=== PATIENT | male | born 1990 | race Caucasian/White ===

== ENCOUNTER 2016-06-10 22:28 | Emergency (ER) | payer OTHER ==
[~2016-06-10] VITALS: Ht 185.4 cm; Wt 113.4 kg
[~2016-06-10 22:28] MED LIST: IBUPROFEN800 M1 PO; PERCOCET 5-3251 EACH PO
[2016-06-10 22:37] VITALS: BP 133/61
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
== END 2016-06-10 23:20 ==
LOC: ERH 22:28
DX: S01.01XA Laceration without foreign body of scalp, initial encounter (principal); W22.8XXA Striking against or struck by other objects, initial encounter; W25.XXXA Contact with sharp glass, initial encounter; Y93.9 Activity, unspecified; Y92.9 Unspecified place or not applicable

== ENCOUNTER 2017-07-18 21:26 | Emergency (ER) | payer SELFPAY ==
[~2017-07-18] VITALS: Ht 185.4 cm; Wt 113.4 kg
[2017-07-18 21:36] VITALS: BP 166/113
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
== END 2017-07-18 22:38 ==
LOC: ERH 21:26
DX: S61.511A Laceration without foreign body of right wrist, initial encounter (principal); F10.129 Alcohol abuse with intoxication, unspecified; W25.XXXA Contact with sharp glass, initial encounter; Y92.9 Unspecified place or not applicable; Y92.89 Other specified places as the place of occurrence of the external cause
CPT/HCPCS: J2001

== ENCOUNTER 2017-09-24 10:32 | Inpatient (IN) | payer OTHER ==
[~2017-09-24] VITALS: Ht 185.4 cm; Wt 103.1 kg
[2017-09-24 11:00] LABS: ABSOLUTE BASOPHIL COUNT 0 /CUMM (0.0-0.2); ABSOLUTE EOSINOPHIL COUNT 0.2 /CUMM (0.0-0.7); ABSOLUTE GRANULOCYTE CT 2.2 /CUMM (1.4-6.5); ABSOLUTE LYMPH COUNT 1.7 /CUMM (1.2-3.4); ABSOLUTE MONOCYTE COUNT 0.5 /CUMM (0.10-0.60); BASOPHIL % 0.9 % (0.0-2.0); EOSINOPHIL % 3.5 % (0-5); GRANULOCYTE % 47.7 % (42.2-75.2); HEMATOCRIT 40.9 % (42-52); MEAN CORPUSCULAR HGB 32.5 PG (27.0-31.0); MEAN CORPUSCULAR HGB CONC 35.1 G/DL (33.0-37.0); MEAN CORPUSCULAR VOLUME 92.7 FL (80.0-94.0); MEAN PLATELET VOLUME 7.7 FL (7.4-10.4); PLATELET COUNT 146 /CUMM (130-400); RBC DISTRIBUTION WIDTH 12.9 % (11.5-14.5); RED BLOOD CELL CT 4.41 /CUMM (4.70-6.10); WHITE BLOOD CELL COUNT 4.6 /CUMM (4.8-10.8)
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
--- NOTE | 2017-09-24 11:58 | CT SCAN REPORT ---
EXAMINATION: CT HEAD WITHOUT CONTRAST CLINICAL INFORMATION: Tonic-clonic seizure followed with confusion. New-onset seizure. COMPARISON: None TECHNIQUE: Contiguous axial imaging was performed from the skull base to vertex without intravenous administration of contrast. DLP: 623.43 mGy-cm FINDINGS: There is no evidence of acute intracranial hemorrhage or territorial infarction. No abnormal mass effect or midline shift is seen. Raphael to white matter differentiation is well preserved. No extra-axial fluid collections are identified. The ventricles are normal in size. There is no abnormal attenuation within the brain parenchyma. The osseous structures and soft tissues are normal. There is partial opacification of the right ethmoid air cells and the right nasal passage. The mastoid air cells and visualized portions of the paranasal sinuses are otherwise well aerated. IMPRESSION: 1. No acute intracranial pathology. 2. Partial opacification of right ethmoid air cells and right nasal passage.
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
--- NOTE | 2017-09-24 14:47 | Admission Certification ---
Admission Certification Certification Statement - As attending physician, I certify that at the time of - admission, based on clinical presentation, severity of - symptoms, need for further diagnostic testing and - therapeutic interventions, and risk of adverse outcomes - without in-hospital treatment, in my clinical assessment, - this patient requires an acute hospital stay for a minimum - of two nights or longer. I have also considered psychsocial - factors such as support system, advanced age, financial - issues, cognitive issues, and failed out-patient treatments, - past re-admission history, safety of patient, and lack of - compliance as applicable. Specific rationale supporting this admission is: New seizures in patient with alcohol dependence
[2017-09-24 18:10] VITALS: BP 158/86
[2017-09-24 18:24] VITALS: BP 158/86
--- NOTE | 2017-09-24 18:59 | MRI REPORT ---
EXAMINATION: MR BRAIN WITHOUT CONTRAST CLINICAL INFORMATION: Seizure. Rule out any space occupying lesion/stroke. COMPARISON: Head CT 09/24/2017. TECHNIQUE: Multiplanar, multisequence imaging of the brain was performed without intravenous contrast. \H\ \N\FINDINGS: There is no acute infarction, mass, hemorrhage, or extra-axial collection. The ventricles, sulci, and basilar cisterns are normal in size and configuration. The hippocampi appear normal in size and signal and are symmetric. The flow voids of the major intracranial arteries appear intact. A small amount of fluid is present in the right mastoid. There is mild ethmoid and maxillary sinus mucosal thickening. IMPRESSION: No acute infarct, mass lesion, intracranial hemorrhage, or evidence of hydrocephalus.
--- NOTE | 2017-09-24 21:13 | ELECTROENCEPHALOGRAM REPORT ---
Electroencephalogram Report Electroencephalogram Results Date of service: 09/24/17 Attending MD: Marissa CRABTREE,Dede Calles Lead Worker Of Housekeeping And Laundry: Isaac EEG Number: [id number] Test Utilizes: 10-20 system, 21 lead 18 channel digital recording Pertinent Hx/Physical/Neuro Findings/Clin Diagnosis: New onset back to back seizure in the setting of alcohol abuse. Inpatient Medications: Current Medications Sig/Luis M Start time Last Medication Dose Route Stop Time Status Admin Acetaminophen 650 MG Q6PRN PRN 09/24 1500 AC PO Acetaminophen 1,000 MG ONCE ONE 09/24 1400 DC 09/24 IV 09/24 1401 1412 Acetaminophen 0 .STK-MED ONE 09/24 1349 DC IV Enoxaparin Sodium 0 .STK-MED ONE 09/24 1531 DC SC Enoxaparin Sodium 40 MG DAILY 09/24 1458 AC 09/24 SC 1531 Folic Acid 1 MG DAILY 09/24 1601 AC 09/24 PO 1847 Ketorolac 0 .STK-MED ONE 09/24 1131 DC Tromethamine .ROUTE Ketorolac 30 MG ONCE ONE 09/24 1130 DC 09/24 Tromethamine IV 09/24 1131 1131 Levetiracetam 1,000 MG BID 09/24 2100 AC 09/24 PO 2006 Levetiracetam 1,000 MG ONCE ONE 09/24 1230 DC 09/24 N/A 1 UNIT IV 09/24 1244 1231 Lorazepam 0 Q1P PRN 09/24 1615 AC 09/24 IV 2005 Lorazepam 0 .STK-MED ONE 09/24 1418 DC .ROUTE Lorazepam 1 MG ONCE ONE 09/24 1415 DC 09/24 IV 09/24 1416 1422 Lorazepam 2 MG ONE ONE 09/24 1230 DC 08 IV 09/24 1231 1223 Lorazepam 0 .STK-MED ONE 09/24 1218 DC .ROUTE Morphine Sulfate 2 MG ONCE ONE 09/24 2000 DC 09/24 IV 09/24 Morphine Sulfate 0 .STK-MED ONE 09/24 1418 DC .ROUTE Morphine Sulfate 4 MG ONCE ONE 09/24 1415 DC 09/24 IV 09/24 1416 1422 Multivitamins 1 TAB DAILY 09/24 1621 AC 09/24 PO 1847 Nicotine 0 .STK-MED ONE 09/24 1419 DC TOP Nicotine 21 MG ONCE ONE 09/24 1415 DC / TOP 09/24 1416 1422 Ondansetron HCl 0 .STK-MED ONE 09/24 1059 DC .ROUTE Ondansetron HCl 4 MG ONCE ONE 09/24 1045 DC 09/24 IV 09/24 1046 1057 Sodium Chloride 1,000 ML BOLUS ONE 09/24 1230 DC / IV 09/24 1329 1231 Sodium Chloride 1,000 ML BOLUS ONE 09/24 1045 DC 09/24 IV 09/24 1144 1057 Thiamine HCl 100 MG DAILY 09/24 1601 AC 09/24 PO 1847 Interpretation: The recording demonstrates a disruption of the normal frequency gradient. The background is predominated by very low 5-15 microvolt fast beta rhythms. No other suggestive paroxysmal sharps or spikes. The posterior dominant rhythm is indiscernible. Impression: Mildly abnormal recording due to low amplitude fast rhythms which are usually a reflection of alcohol use or benzodiazepine usage in this context.
[2017-09-24 22:01] VITALS: BP 154/76
[2017-09-25 06:18] VITALS: BP 164/98
[2017-09-25 06:58] VITALS: BP 160/98
--- NOTE | 2017-09-25 07:19 | PN- Housestaff ---
LeandrorasheedEvgeny 09/25/17 0719: Subjective Follow-up For: Alcohol Withdrawal Seizure Subjective: No events per nursing. No events on tele monitor. Pt complains that he didn't sleep well last night. He is complaining of pain in his back and down his right leg, neuropathic sounding in nature. He denies any new complaints. Review of Systems Constitutional: Reports: see HPI. Objective Last 24 Hrs of Vital Signs/I&O Vital Signs Date Time Temp Pulse Resp B/P B/P Pulse O2 O2 Flow FiO2 Mean Ox Delivery Rate 09/25 2204 98.8 134 16 144/86 97 09/25 1440 98.4 88 18 150/100 97 Room Air 09/25 0658 984.0 87 20 160/98 97 Room Air 09/25 0618 98.4 87 20 164/98 Intake & Output 09/26 0800 09/26 0000 09/25 1600 Intake Total 120 800 Output Total Balance 120 800 Intake, Oral 120 800 Patient 227 lb Weight Physical Exam General Appearance: Alert, Oriented X3, Mild Distress HEENT: Atraumatic, PERRLA, EOMI Neck: Supple Cardiovascular: Regular Rate, Normal S1, Normal S2 Lungs: Clear to Auscultation Abdomen: Normal Bowel Sounds, Soft, No Tenderness Neurological: Normal Speech, Upper limbs no pronator drift Extremities: No Tenderness/Swelling Current Medications: Current Medications Sig/Luis M Start time Last Medication Dose Route Stop Time Status Admin Acetaminophen 650 MG Q6PRN PRN 09/24 1500 AC PO Enoxaparin Sodium 40 MG DAILY 09/24 1458 AC 09/25 SC 0826 Folic Acid 1 MG DAILY 09/24 1601 AC 09/25 PO 0826 Gabapentin 300 MG Q8 09/25 1400 AC 09/25 PO 2112 Levetiracetam 1,000 MG BID 09/24 2100 DC 09/25 PO 0826 Lorazepam 2 MG Q6 09/25 1200 AC 09/25 PO 2354 Lorazepam 0 Q1P PRN 09/24 1615 AC 09/25 IV 1010 Morphine Sulfate 2 MG Q8P PRN 09/25 1015 AC IV Multivitamins 1 TAB DAILY 09/24 1621 AC 09/25 PO 0826 Nicotine 21 MG DAILY 09/25 1500 AC 09/25 TOP 1702 Oxycodone/ 0 .STK-MED ONE 09/25 1003 DC Acetaminophen PO Oxycodone/ 1 TAB Q6P PRN 09/25 0945 AC 09/25 Acetaminophen PO 2220 Thiamine HCl 100 MG DAILY 09/24 1601 AC 09/25 PO 0826 Last 24 Hrs of Lab/Geovany Results Last 24 Hrs of Labs/Mics: Laboratory Tests 09/25/17 0645: CBC w Diff NO MAN DIFF REQ, RBC 4.40 L, MCV 92.4, MCH 32.0 H, MCHC 34.6, RDW 13.0, MPV 8.1, Gran % 74.3, Lymphocytes % 16.9 L, Monocytes % 4.5, Eosinophils % 3.2, Basophils % 1.1, Absolute Granulocytes 3.4, Absolute Lymphocytes 0.8 L, Absolute Monocytes 0.2, Absolute Eosinophils 0.1, Absolute Basophils 0.1 Assessment/Plan Assessment: 26 year old with long hx of alcohol abuse presenting with likely alcohol withdrawal seizures. His urine was positive for cocaine and opiates. His progression is concerning for worsening withdrawal symptoms, we will use scheduled Ativan for now. Problem list: #Alcohol Withdrawal Seizure #Polysubstance Abuse - Gabapentin 300mg TID for R Leg neuropathic radicular pain - Schedule Ativan 2mg Q6 - Pain management with Tylenol, - Thiamine and Folic acid - Social consult Problem List: 1. Alcohol withdrawal seizure Pain Ratin Pain Location: Right left Pain Goal: Remain pain free Pain Plan: Per [facility] Labs & Rationales: AUNG Ann MD,Dede 09/25/17 1046: Attending MD Review Statement Attending Statement Attending MD Statement: examined this patient, discuss w/resident/PA/APPLICATIONS PACKAGER, agreed w/resident/PA/APPLICATIONS PACKAGER, reviewed EMR data (avail), discussed with nursing, discussed with case mgmt, reviewed images Attending Assessment/Plan: Patient complaining of a lot of pain and says that it originates in his back and goes down his legs. I spoke to the neurologist who is recommending gabapentin both for his sciatica and his seizure. We think this is an alcohol withdrawal/ related seizure. He is fairly tremulous and withdrawing so we will start him on Ativan [id number]. I spoke to him about his U tox being positive for cocaine and opiates and we have a social work consult pending.
[2017-09-25 07:39] LABS: ABSOLUTE BASOPHIL COUNT 0.1 /CUMM (0.0-0.2); ABSOLUTE EOSINOPHIL COUNT 0.1 /CUMM (0.0-0.7); ABSOLUTE GRANULOCYTE CT 3.4 /CUMM (1.4-6.5); ABSOLUTE LYMPH COUNT 0.8 /CUMM (1.2-3.4); ABSOLUTE MONOCYTE COUNT 0.2 /CUMM (0.10-0.60); BASOPHIL % 1.1 % (0.0-2.0); EOSINOPHIL % 3.2 % (0-5); HEMATOCRIT 40.7 % (42-52); MEAN CORPUSCULAR HGB CONC 34.6 G/DL (33.0-37.0); MEAN CORPUSCULAR VOLUME 92.4 FL (80.0-94.0); MEAN PLATELET VOLUME 8.1 FL (7.4-10.4); PLATELET COUNT 122 /CUMM (130-400); WHITE BLOOD CELL COUNT 4.6 /CUMM (4.8-10.8)
[2017-09-25 07:59] LABS: GRANULOCYTE % 74.3 % (42.2-75.2)
--- NOTE | 2017-09-25 08:04 | PN- Student ---
Subjective Subjective: 26-year-old male with PMH of right-sided sciatica, polysubstance abuse, and metatarsal and metacarpal fractures presented to ED with new onset of seizures x2 episodes 1 at home and 1 in ED 1 day ago, both of which lasted for 1-2 mins, which was witnessed by his girlfriend and was controlled with Ativant 2mg IV 1 dose and Keppra 1000mg IV 1 dose in ED. Hospital day 1: Overnight, bus driver/monitor reported NSR [id number] 12am-6am. Upon visiting patient this morning at 7:30am, patient was sleeping and his girlfriend requested not to disturb him as he had difficulty sleeping overnight due to back pain. Will return later to complete bedside evaluation and interview. Patient was interviewed and examined at bedside. His only complaint was his lower back pain in which he could not sleep well overnight. Patient requested high dose pain med in which the attending refused because patient had history of cocaine, heroine and marijuanna abuse. Patient denied SOB, chest pain, palpitation, headache, fever, chills. Current Medications Sig/Luis M Start time Last Medication Dose Route Stop Time Status Admin Acetaminophen 650 MG Q6PRN PRN 09/24 1500 AC PO Acetaminophen 1,000 MG ONCE ONE 09/24 1400 DC 09/24 IV 09/24 1401 1412 Acetaminophen 0 .STK-MED ONE 09/24 1349 DC IV Enoxaparin Sodium 0 .STK-MED ONE 09/24 1531 DC SC Enoxaparin Sodium 40 MG DAILY 09/24 1458 AC 09/25 SC 0826 Folic Acid 1 MG DAILY 09/24 1601 AC 09/25 PO 0826 Gabapentin 300 MG Q8 09/25 1400 AC PO Ketorolac 0 .STK-MED ONE 09/24 1131 DC Tromethamine .ROUTE Ketorolac 30 MG ONCE ONE 09/24 1130 DC 09/24 Tromethamine IV 09/24 1131 1131 Levetiracetam 1,000 MG BID 09/24 2100 DC 09/25 PO 0826 Levetiracetam 1,000 MG ONCE ONE 09/24 1230 DC 09/24 N/A 1 UNIT IV 09/24 1244 1231 Lorazepam 2 MG Q6 09/25 1200 AC PO Lorazepam 0 Q1P PRN 09/24 1615 AC 09/25 IV 1010 Lorazepam 0 .STK-MED ONE 09/24 1418 DC .ROUTE Lorazepam 1 MG ONCE ONE 09/24 1415 DC 09/24 IV 09/24 1416 1422 Lorazepam 2 MG ONE ONE 09/24 1230 DC 09/24 IV 09/24 1231 1223 Lorazepam 0 .STK-MED ONE 09/24 1218 DC .ROUTE Morphine Sulfate 2 MG Q8P PRN 09/25 1015 AC IV Morphine Sulfate 0 .STK-MED ONE 09/25 0154 DC .ROUTE Morphine Sulfate 2 MG ONCE ONE 09/25 0145 DC 09/25 IV 09/25 0146 0155 Morphine Sulfate 2 MG ONCE ONE 09/25 1999 DC 09/24 IV 09/24 Morphine Sulfate 0 .STK-MED ONE 09/24 1418 DC .ROUTE Morphine Sulfate 4 MG ONCE ONE 09/24 1415 DC 09/24 IV 09/24 1416 1422 Multivitamins 1 TAB DAILY 09/24 1621 AC 09/25 PO 0826 Nicotine 0 .STK-MED ONE 09/24 1419 DC TOP Nicotine 21 MG ONCE ONE 09/24 1415 DC 09/24 TOP 09/24 1416 1422 Ondansetron HCl 0 .STK-MED ONE 09/24 1059 DC .ROUTE Ondansetron HCl 4 MG ONCE ONE 09/24 1045 DC 09/24 IV 09/24 1046 1057 Oxycodone/ 0 .STK-MED ONE 09/25 1003 DC Acetaminophen PO Oxycodone/ 1 TAB Q6P PRN 09/25 0945 AC 09/25 Acetaminophen PO 1010 Sodium Chloride 1,000 ML BOLUS ONE 09/24 1230 DC 09/24 IV 09/24 1329 1231 Sodium Chloride 1,000 ML BOLUS ONE 09/24 1045 DC 09/24 IV 09/24 1144 1057 Thiamine HCl 100 MG DAILY 09/24 1601 AC 09/25 PO 0826 Allergies: NKA. Objective Objective: Vital Signs Date Time Temp Pulse Resp B/P B/P Pulse O2 O2 Flow FiO2 Mean Ox Delivery Rate 09/25 0558 984.0 87 20 160/98 97 Room Air 09/25 0618 98.4 87 20 164/98 09/24 2244 Room Air 09/24 2201 98.1 84 22 154/76 99 09/24 1832 Room Air Room Air 09/24 1824 97.4 80 20 158/86 96 09/24 1810 88 18 158/86 09/24 1443 98.2 80 18 166/91 96 Room Air 09/24 1247 97.8 74 20 143/83 95 Room Air Intake & Output 09/25 1600 09/25 0800 09/25 0000 Intake Total 400 500 Output Total 850 Balance -450 500 Intake, Oral 400 500 Output, Urine 850 Patient 222 lb Weight Physical Exam: - Patient was oriented to Time, Person, and Place, in mild distress due to pain. - HEENT: NC/AT, PERRLA, EOMI. - Cardio: normal S1, S2 no additional murmur nor gallop. - Lungs: CTA bilaterally. - Abdomen: soft, nontender, no hepatomegaly, no guarding, no rigidity. - Back: lower back tenderness radiating to right leg and foot, tingling, numbness of right leg. - Neuro: CN II-XII intact. Results Results: Laboratory Tests 09/25/17 0645: CBC w Diff NO MAN DIFF REQ, RBC 4.40 L, MCV 92.4, MCH 32.0 H, MCHC 34.6, RDW 13.0, MPV 8.1, Gran % 74.3, Lymphocytes % 16.9 L, Monocytes % 4.5, Eosinophils % 3.2, Basophils % 1.1, Absolute Granulocytes 3.4, Absolute Lymphocytes 0.8 L, Absolute Monocytes 0.2, Absolute Eosinophils 0.1, Absolute Basophils 0.1 09/24/17 1850: Urine Opiates Screen 2205.00 H, Methadone Screen < 40, Barbiturate Screen < 60, Ur Phencyclidine Scrn < 6.00, Amphetamines Screen < 100, U Benzodiazepines Scrn < 85, Urine Cocaine Screen > 1000 H, Urine Cannabis Screen < 5.00 09/24/17 1052: Anion Gap 14, Estimated GFR > 60, BUN/Creatinine Ratio 11.3, Glucose 91, Calcium 9.5, Magnesium 2.0, Total Bilirubin 0.8, AST 102 H, ALT 70, Alkaline Phosphatase 86, Total Protein 7.8, Albumin 4.5, Globulin 3.3, Albumin/Globulin Ratio 1.4, TSH &T3 &Free T4 Intrp 2.950, Prolactin 31.7 H, CBC w Diff NO MAN DIFF REQ, RBC 4.41 L, MCV 92.7, MCH 32.5 H, MCHC 35.1, RDW 12.9, MPV 7.7, Gran % 47.7, Lymphocytes % 37.4, Monocytes % 10.5 H, Eosinophils % 3.5, Basophils % 0.9, Absolute Granulocytes 2.2, Absolute Lymphocytes 1.7, Absolute Monocytes 0.5 , Absolute Eosinophils 0.2, Absolute Basophils 0, Serum Alcohol 46.0 Imaging: - Brain MRI: No acute infarct, mass lesion, intracranial hemorrhage, or evidence of hydrocephalus. - EEG: Mildly abnormal recording due to low amplitude fast rhythms which are usually a reflection of alcohol use or benzodiazepine usage. Assessment/Plan Assessment: Summary: 26-year-old male with PMH of right-sided sciatica, polysubstance abuse, and metatarsal and metacarpal fractures presented to ED with new onset of seizures x2 episodes 1 at home and 1 in ED 1 day ago, both of which lasted for 1-2 mins, which was witnessed by his girlfriend and was controlled with Ativant 2mg IV 1 dose and Keppra 1000mg IV 1 dose in ED. Labs was significant on PRL 31.7H, AST 102H, utox was high on opiates 2205, cocaine >1000. Brain MRI was unremarkable and EEG suggested alcohol and BZD use. Problem list: - Generalized tonic-clonic seizure due to alcohol withdrawal. - Polysubstance use including cocaine, heroine and marijuanna. - Right-sided sciatica - Metatarsal and metacarpal fracture. Plan: - Discontinue Keppra 100mg PO BID per neuro note. - Ativan 20mg PO q6 per [facility] protocol. - Continue all supplements including: . Thiamine 100mg PO daily. . Folic Acid 1mg PO daily. - Oxycodone for pain 1 tab PO q6p prn . - Gabapentin 300mg PO q8 - receiving worker consult on substance withdrawal. - F/u Neuro note. #DVT prophylaxis with Alps and Levonox #Regular diet #Full code. #Full code.
[2017-09-25 14:40] VITALS: BP 150/100
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
[2017-09-25 22:04] VITALS: BP 144/86
[2017-09-26 06:40] VITALS: BP 132/98
--- NOTE | 2017-09-26 07:20 | PN- Housestaff ---
YazsatishEvgeny 09/26/17 0719: Subjective Follow-up For: Seizures Tele-Events Since Last Visit: No events on tele monitor. No events from nursing. Pt was walking around last night. Pt says he feels alot better. Seems more alert. Says pain regimen is working. Review of Systems Constitutional: Reports: see HPI. Objective Last 24 Hrs of Vital Signs/I&O Vital Signs Date Time Temp Pulse Resp B/P B/P Pulse O2 O2 Flow FiO2 Mean Ox Delivery Rate 09/26 1200 78 09/26 1000 76 09/26 0934 70 09/26 0640 98.4 82 18 132/98 98 Room Air 09/25 2204 98.8 134 16 144/86 97 09/25 1440 98.4 88 18 150/100 97 Room Air Intake & Output 09/26 1600 09/26 0800 09/26 0000 Intake Total 120 120 Output Total Balance 120 120 Intake, Oral 120 120 Patient 227 lb Weight Physical Exam General Appearance: Alert, Oriented X3, Cooperative, No Acute Distress Skin Temp/Moisture Exam: Warm/Dry HEENT: Atraumatic, EOMI Cardiovascular: Regular Rate, Normal S1, Normal S2 Lungs: Clear to Auscultation Abdomen: Normal Bowel Sounds, Soft, No Tenderness Neurological: Normal Speech, No tremor, no pronator drift Extremities: No Tenderness/Swelling Current Medications: Current Medications Sig/Luis M Start time Last Medication Dose Route Stop Time Status Admin Acetaminophen 650 MG Q6PRN PRN 09/24 1500 AC PO Enoxaparin Sodium 40 MG DAILY 09/24 1458 AC 09/26 SC 0801 Folic Acid 1 MG DAILY 09/24 1601 AC 09/26 PO 0801 Gabapentin 300 MG Q8 09/25 1400 AC 09/26 PO 1309 Lorazepam 2 MG Q8 09/26 1400 AC 09/26 PO 1309 Lorazepam 2 MG Q6 09/25 1200 DC 09/26 PO 0541 Lorazepam 0 Q1P PRN 09/24 1615 AC 09/25 IV 1010 Morphine Sulfate 2 MG Q8P PRN 09/25 1015 AC IV Multivitamins 1 TAB DAILY 09/24 1621 AC 09/26 PO 0801 Nicotine 21 MG DAILY 09/25 1500 AC 09/26 TOP 0801 Oxycodone/ 1 TAB Q6P PRN 09/25 0945 AC 09/26 Acetaminophen PO 0541 Thiamine HCl 100 MG DAILY 09/24 1601 AC 09/26 PO 0801 Assessment/Plan Assessment: 26 year old with long hx of alcohol abuse presenting with likely alcohol withdrawal seizures. His urine was positive for cocaine and opiates. His progression is concerning for worsening withdrawal symptoms, we will use scheduled Ativan for now and decrease by 25% each day. Problem list: #Alcohol Withdrawal Seizure #Polysubstance Abuse - Gabapentin 300mg TID for R Leg neuropathic radicular pain - Encourage limited use of Percocet - Thiamine and Folic acid - Social consult DVT ppx Full Code Problem List: 1. Alcohol withdrawal seizure Pain Ratin Pain Location: Back and leg Pain Goal: Remain pain free Pain Plan: per pathway Tomorrow's Labs & Rationales: AUNG Ann MD,Dede 09/26/17 0944: Attending MD Review Statement Attending Statement Attending MD Statement: examined this patient, discuss w/resident/PA/JANITOR CARETAKER, agreed w/resident/PA/JANITOR CARETAKER, reviewed EMR data (avail), discussed with nursing, discussed with case mgmt, reviewed images Attending Assessment/Plan: Patient is eager to leave. I explained to him the need to stay to complete his Ativan taper given the alcohol withdrawal seizure. We have cut down by 25% to 2 mg q. 8 today and he remains on the Neurontin. I also explained at length that he needs to cut down his use of Percocet otherwise very placing one addiction for the other. We anticipate discharge in the next 48 hours and will have social work see him for outpatient alcohol rehab options.
--- NOTE | 2017-09-26 08:04 | PN- Student ---
Subjective Subjective: 26-year-old male with PMH of right-sided sciatica, polysubstance abuse, and metatarsal and metacarpal fractures presented to ED with new onset of seizures x2 episodes 1 at home and 1 in ED 1 day ago, both of which lasted for 1-2 mins, which was witnessed by his girlfriend and was controlled with Ativant 2mg IV 1 dose and Keppra 1000mg IV 1 dose in ED. Hospital day 2: Overnight, library monitor reported NSR 66-76 12am-6am. Patient was seen and interviewed at bed side. Patient looked more comfortable and alert compared to yesterday. He stated that his lower back pain was controlled, just felt like a knot and he was able to walk around yesterday night. There was no acute events overnight. Patient denied SOB, chest pain, fever, chills, tremor and headache. Current Medications Sig/Luis M Start time Last Medication Dose Route Stop Time Status Admin Acetaminophen 650 MG Q6PRN PRN 09/24 1500 AC PO Enoxaparin Sodium 40 MG DAILY 09/24 1458 AC 09/26 SC 0801 Folic Acid 1 MG DAILY 09/24 1601 AC 09/26 PO 0801 Gabapentin 300 MG Q8 09/25 1400 AC 09/26 PO 0541 Levetiracetam 1,000 MG BID 09/24 2100 DC 09/25 PO 0826 Lorazepam 2 MG Q8 09/26 1400 AC PO Lorazepam 2 MG Q6 09/25 1200 DC 09/26 PO 0541 Lorazepam 0 Q1P PRN 09/24 1615 AC 09/25 IV 1010 Morphine Sulfate 2 MG Q8P PRN 09/25 1015 AC IV Multivitamins 1 TAB DAILY 09/24 1621 AC 09/26 PO 0801 Nicotine 21 MG DAILY 09/25 1500 AC 09/26 TOP 0801 Oxycodone/ 0 .STK-MED ONE 09/25 1003 DC Acetaminophen PO Oxycodone/ 1 TAB Q6P PRN 09/25 0945 AC 09/26 Acetaminophen PO 0541 Thiamine HCl 100 MG DAILY 09/24 1601 AC 09/26 PO 0801 Allergies: NKA Objective Objective: Vital Signs Date Time Temp Pulse Resp B/P B/P Pulse O2 O2 Flow FiO2 Mean Ox Delivery Rate 09/26 0640 98.4 82 18 132/98 98 Room Air 09/25 2204 98.8 134 16 144/86 97 09/25 1440 98.4 88 18 150/100 97 Room Air Intake & Output 09/26 1600 09/26 0800 09/26 0000 Intake Total 120 120 Output Total Balance 120 120 Intake, Oral 120 120 Patient 227 lb Weight Physical Exam: - Patient was oriented to Time, Person and Place, comfortable and no acute distress. - HEENT: NC/AT, PERRLA, EOMI. - Cardio: normal S1, S2 no additional murmur nor gallop. - Lungs: CTA bilaterally. - Abdomen: soft, nontender, no hepatomegaly, no guarding, no rigidity. - Back: mild lower back tenderness. - Neuro: CN II-XII intact, no tremor, no confusion. Results Results: Laboratory Tests 09/25/17 0645: CBC w Diff NO MAN DIFF REQ, RBC 4.40 L, MCV 92.4, MCH 32.0 H, MCHC 34.6, RDW 13.0, MPV 8.1, Gran % 74.3, Lymphocytes % 16.9 L, Monocytes % 4.5, Eosinophils % 3.2, Basophils % 1.1, Absolute Granulocytes 3.4, Absolute Lymphocytes 0.8 L, Absolute Monocytes 0.2, Absolute Eosinophils 0.1, Absolute Basophils 0.1 09/24/17 1850: Urine Opiates Screen 2205.00 H, Methadone Screen < 40, Barbiturate Screen < 60, Ur Phencyclidine Scrn < 6.00, Amphetamines Screen < 100, U Benzodiazepines Scrn < 85, Urine Cocaine Screen > 1000 H, Urine Cannabis Screen < 5.00 09/24/17 1052: Anion Gap 14, Estimated GFR > 60, BUN/Creatinine Ratio 11.3, Glucose 91, Calcium 9.5, Magnesium 2.0, Total Bilirubin 0.8, AST 102 H, ALT 70, Alkaline Phosphatase 86, Total Protein 7.8, Albumin 4.5, Globulin 3.3, Albumin/Globulin Ratio 1.4, TSH &T3 &Free T4 Intrp 2.950, Prolactin 31.7 H, CBC w Diff NO MAN DIFF REQ, RBC 4.41 L, MCV 92.7, MCH 32.5 H, MCHC 35.1, RDW 12.9, MPV 7.7, Gran % 47.7, Lymphocytes % 37.4, Monocytes % 10.5 H, Eosinophils % 3.5, Basophils % 0.9, Absolute Granulocytes 2.2, Absolute Lymphocytes 1.7, Absolute Monocytes 0.5 , Absolute Eosinophils 0.2, Absolute Basophils 0, Serum Alcohol 46.0 Imaging: - Brain MRI: No acute infarct, mass lesion, intracranial hemorrhage, or evidence of hydrocephalus. - EEG: Mildly abnormal recording due to low amplitude fast rhythms which are usually a reflection of alcohol use or benzodiazepine usage. Assessment/Plan Assessment: Summary: 26-year-old male with PMH of right-sided sciatica, polysubstance abuse, and metatarsal and metacarpal fractures presented to ED with new onset of seizures x2 episodes 1 at home and 1 in ED 1 day ago, both of which lasted for 1-2 mins, which was witnessed by his girlfriend and was controlled with Ativant 2mg IV 1 dose and Keppra 1000mg IV 1 dose in ED. Patient had mild back pain, EEG showed fast rhythms for alcohol and BZD use, brain MRI was unremarkable. Labs was significant on PRL 31.7H, AST 102H, utox was high on opiates 2205, cocaine > 1000. Problem list: - Generalized tonic-clonic seizure due to alcohol withdrawal. - Polysubstance use including cocaine, heroine and marijuanna. - Right-sided sciatica - Metatarsal and metacarpal fracture. Plan: - Discontinue monitor. - Taper down Ativant 2mg PO q8. - Continue Gabapentin 300mg PO q8 for pain control right-sided sciatica and antiepileptic. - Continue Percocet 1 tab PO q6 prn. Have the patient limited on use. - Continue all supplements including: . Thiamine 100mg PO daily. . Folic Acid 1mg PO daily. - Make sure transition social worker see him today for rehab. - Per neuro, will do 24-hr EEG as outpatient. 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 - Anticipate discharge in the next 2 days once Ativant is tapered down. #DVT prophylaxis with Alps and Levonox #Regular diet #Full code.
[2017-09-26 14:12] VITALS: BP 130/78
--- NOTE | 2017-09-26 20:02 | Patient Discharge Instructions ---
Discharge Instructions General Discharge Information You were seen/treated for: Alcohol use disorder Alcohol withdrawal seizure Special Instructions: Please follow up with your primary care and neurology referral. Refrain from alcohol use Take your gabapentin as prescribed and don't drive Acute Coronary Syndrome Inclusion Criteria At DC or during hospital stay patient has or had the following: ACS DIAGNOSIS No Discharge Core Measures Meds if any: Prescribed or Continued at Discharge Meds if any: NOT Prescribed or Continued at Discharge Congestive Heart Failure Inclusion Criteria At DC or during hospital stay patient has or had the following: CHF DIAGNOSIS No Discharge Core Measures Meds if any: Prescribed or Continued at Discharge Meds if any: NOT Prescribed or Continued at Discharge Cerebrovascular accident Inclusion Criteria At DC or during hospital stay patient has or had the following: CVA/TIA Diagnosis No Discharge Core Measures Meds if any: Prescribed or Continued at Discharge Meds if any: NOT Prescribed or Continued at Discharge Venous thromboembolism Inclusion Criteria VTE Diagnosis No VTE Type NONE VTE Confirmed by (Test) NONE Discharge Core Measures - Per Current guidelines, there needs to be overlap - treatment for the first 5 days of Warfarin therapy. - If discharged on Warfarin prior to 5 days of - overlap therapy, the patient will need to be - assessed for post discharge needs including - *Post discharge parental anticoagulation - *Warfarin and/or parental anticoagulation education - *Follow up date to check INR post discharge At least 5 days overlap therapy as Inpatient No Meds if any: Prescribed or Continued at Discharge Note: Overlap Therapy is Warfarin and Anticoagulant Meds if any: NOT Prescribed or Continued at Discharge
[2017-09-26] MEDS ORDERED: GABAPENTIN300 M2 PO (20:04)
--- NOTE | 2017-09-26 20:06 | Event Note ---
See Addendum Event Note Event Note: Patient is side to leave AMA. Patient was informed of the risks related to detox and not completing Ativan taper, including seizures and . Patient is competent to make decisions, and he signed AMA paperwork.
--- NOTE | 2017-09-27 07:31 | Discharge Summary ---
Visit Information Visit Dates Admission Date: 09/24/17 Discharge Date: 09/26/17 Hospital Course Course Attending Physician: Marissa CRABTREE,Dede Calles Primary Care Physician: Patient Has No Primary Care Dr Hospital Course: 26 yr old male with a PMH of alcoholism (approx 10 years) was brought in ambulance accompanied by his girlfriend and sister after having a seizure-like episode in bed that morning. The seizure was described as tonic-clonic in nature with shaking motions, clenched jaw, lasting around 2 minutes, with no recollection from the patient. Patient was described to be in a confused state when EMS arrived. There was no aura, tongue biting, loss of bladder or bowel function associated with the first episode. In the ED he vomited and had one repeat episode resolving with Ativan. According to sister, patient has never had any episode of seizures in the past. Patient had poor recollection of the actual event. He did however report a low back pain radiating down the right thigh and leg with some numbness in that extremity. U tox came back positive for opiates and cocaine. Patient was admitted to neurocardiac telemetry floor and put on heart monitor. No metabolic abnormaility and head MRI/CT were negative. EEG was consistent with alcohol and benzo use. Patient was put on scheduled Ativan with 25% dose reduction per day, morphine, percocet and gabapentin for pain control, Thiamine, Folic acid, and a social work consult. 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 He was advised to followup with another EEG outpatient upon completing hospital course. Patient had no repeat seizure episodes during admission. Cardiac monitoring showed no abnormailites. On 09/26/17 patient decided to leave AMA. He was repeatedly advised about the hazardous consequences of not completing ativan taper and being closely monitored including seizures and . Since patient had capacity, he signed AMA paperwork and left. EEG 09/24/17 Impression: Mildly abnormal recording due to low amplitude fast rhythms which are usually a reflection of alcohol use or benzodiazepine usage in this context. CT head 09/24/17 IMPRESSION: 1. No acute intracranial pathology. 2. Partial opacification of right ethmoid air cells and right nasal passage. MRI Head 09/24/17 IMPRESSION: No acute infarct, mass lesion, intracranial hemorrhage, or evidence of hydrocephalus. Allergies: Coded Allergies: No Known Allergies (06/10/16) Disposition Summary Disposition Principal Diagnosis: Alcohol Withdrawal Seizure Additional Diagnosis: Right side sciatica/radiculopathy Discharge Disposition: left against medical adv Discharge Instructions General Discharge Information Code Status: Full Code Patient's Diet: Regular Patient's Activity: Self - limited Follow-Up Instructions/Appts: Follow up with PCP and neurologist within one week Refrain from alochol use Take gapapentin as prescribed Medications at Discharge Discharge Medications: Start taking the following new medications: Gabapentin (Gabapentin) 300 MG CAPSULE 1 Capsule ORAL THREE TIMES DAILY Qty = 90 No Refills Copies To: Nanda CRABTREE,Karl
== END 2017-09-26 20:07 | disposition left against medical advice (07) | DRG 770 ==
LOC: ERH 10:32 → 1NO 12:19 → ERHI 12:19 → ENRESERV 14:29 → ENTRNSPT 15:29 → EDTRNSPTSTS 15:58 → EDTRNSPT 15:58 → 1NO 16:08 → EDTRNSPT 17:55 → CMPTRNSPT 18:07 → 1NO 09-25 14:47
PROVIDERS: Emergency Medicine; Internal Medicine
DX: F10.239 Alcohol dependence with withdrawal, unspecified (principal); R56.9 Unspecified convulsions; M54.41 Lumbago with sciatica, right side; F14.10 Cocaine abuse, uncomplicated; F12.10 Cannabis abuse, uncomplicated; F11.10 Opioid abuse, uncomplicated; Y90.2 Blood alcohol level of 40-59 mg/100 ml; F17.210 Nicotine dependence, cigarettes, uncomplicated; Z87.81 Personal history of (healed) traumatic fracture
CPT/HCPCS: 1NP; 70551; 36415; 80307; 95816; 96374; 96375; G0480; J0131; J1650; J1885; J1953; J2405; J3490